=== PATIENT | female | born 1960 | race Caucasian/White ===

== ENCOUNTER 2022-07-16 08:00 | Outpatient (CLI) | payer BC ==
--- NOTE | 2022-07-16 19:37 | XRAY Report ---
PROCEDURE: Chest 2 View X-Ray INDICATIONS: SHORTNESS OF BREATH TECHNIQUE: 2 views of the chest were obtained COMPARISON: None. FINDINGS: Heart size, mediastinal and pulmonary vasculature normal. Lungs and spaces clear. Osseous structures normal IMPRESSION: Normal two-view chest x-ray Reviewed by: Percy Taylor MD on 07/16/2022 6:35 PM [email or web address] Approved by: Percy Taylor MD on 07/16/2022 6:35 PM AKDT Station ID: [id number]
== END 2022-07-16 23:59 | disposition home or self-care (01) ==
LOC: DI.S 08:00
PROVIDERS: ATTEND Physician Assistant
DX: R06.02 Shortness of breath (principal)